=== PATIENT | male | born 2000 | race African-American/Black ===

== ENCOUNTER 2019-04-24 14:45 | Emergency (ER) | payer OTHER ==
[~2019-04-24] VITALS: Ht 193 cm; Wt 95.3 kg
[2019-04-24 14:45] VITALS: BP_SYST 111
--- NOTE | 2019-04-24 14:45 | NUR ---
BROUGHT BACK TO BED #7 AND TRIAGED. REPORT GIVEN TO GARRY
--- NOTE | 2019-04-24 15:29 | NUR ---
ER at bedside examining patient.
--- NOTE | 2019-04-24 15:32 | NUR ---
patient bib mother cc of stye in the eye with discharges. denies pain. vital sign stable, afebrile.no other concerned noted.
[2019-04-24 15:57] VITALS: BP_SYST 111
--- NOTE | 2019-04-24 15:57 | NUR ---
Patient given written and verbal discharge instructions and verbalizes understanding. ER MD discussed with patient the results and treatment provided. Patient in stable condition. ID arm band removed. Rx of sulfacetamide ophthalmic ointment given. Patient educated on pain management and to follow up with PMD. Pain Scale 0. Opportunity for questions provided and answered. Medication side effect fact sheet provided.
== END 2019-04-24 15:57 | disposition home or self-care (01) ==
LOC: SED 14:45
DX: H00.014 Hordeolum externum left upper eyelid (principal)
CPT/HCPCS: 99283

== ENCOUNTER 2020-12-05 16:19 | Emergency (ER) | payer OTHER ==
[~2020-12-05] VITALS: Ht 193 cm; Wt 96.2 kg
[2020-12-05 16:28] VITALS: BP_SYST 102
[2020-12-05] MEDS ORDERED: HYDROcodone/ACETAMIN 7.5-325 MG TAB PO ONE (17:00)
[2020-12-05] MEDS ORDERED: IBUPROFEN 800 MG TABLET PO ONE (17:00)
[2020-12-05] MEDS ORDERED: HYDR-3917 PO (17:35)
[2020-12-05] MEDS ORDERED: IBUP-1971 PO (17:35)
[2020-12-05 17:54] VITALS: BP_SYST 136
== END 2020-12-05 17:54 | disposition home or self-care (01) ==
LOC: SED 16:19
DX: S93.502A Unspecified sprain of left great toe, initial encounter (principal); Z79.899 Other long term (current) drug therapy; X50.1XXA Overexertion from prolonged static or awkward postures, initial encounter; Y93.67 Activity, basketball; Y92.89 Other specified places as the place of occurrence of the external cause; Y99.8 Other external cause status
CPT/HCPCS: 99283

== ENCOUNTER 2021-01-10 18:32 | Emergency (ER) | payer OTHER ==
[~2021-01-10] VITALS: Ht 193 cm; Wt 93.0 kg
[~2021-01-10 18:32] MED LIST: HYDR-3917 PO; IBUP-1971 PO
[2021-01-10 18:40] VITALS: BP_SYST 105
[2021-01-10] MEDS ORDERED: BACITRACIN 1 GM OINT TP ONE (19:17)
[2021-01-10 20:00] VITALS: BP_SYST 105
== END 2021-01-10 20:00 | disposition home or self-care (01) ==
LOC: SED 18:32
DX: S61.001A Unspecified open wound of right thumb without damage to nail, initial encounter (principal); Z79.899 Other long term (current) drug therapy; W45.8XXA Other foreign body or object entering through skin, initial encounter; Y93.89 Activity, other specified; Y92.89 Other specified places as the place of occurrence of the external cause; Y99.8 Other external cause status
CPT/HCPCS: 99282